=== PATIENT | male | born 1985 ===

== ENCOUNTER 2017-03-01 14:29 | Emergency (ER) | payer MEDICAID ==
[2017-03-01 14:45] VITALS: BP 134/91; PULSE 100; RESP 18; TEMP 98.6; O2SAT 97
[2017-03-01] MEDS ORDERED: TDAP Vaccine 0.5 mL Syr IM ONE (14:52)
--- NOTE | 2017-03-01 14:55 | ED PDOC ---
Lower Extremity Pain/Injury Time Seen by Provider: 03/01/17 14:45 Chief Complaint (Nursing): Lower Extremity Problem/Injury Chief Complaint (Provider): Foot injury History Per: Patient Additional Complaint(s): Pt. states yesterday at home he stepped on a nail while wearing boots (pt. is uncertain as to the material of the sole). Has been having pain to the bottom and top of the foot since. Denies FB sensation, numbness, tingling, fever, hx of DM. Past Medical History Reviewed: Historical Data, Nursing Documentation, Vital Signs Vital Signs: Last Vital Signs Temp 98.6 F 03/01/17 14:42 Pulse 100 H 03/01/17 14:42 Resp 18 03/01/17 14:42 BP 134/91 H 03/01/17 14:42 Pulse Ox 97 03/01/17 14:42 - Family History Family History: States: No Known Family Hx - Immunization History Hx Tetanus Toxoid Vaccination: Yes - Home Medications Home Medications: Ambulatory Orders Medication Instructions Recorded Ciprofloxacin [Cipro] 500 mg PO BID #14 tab 03/01/17 Naproxen [Naprosyn] 500 mg PO BID PRN #30 tab 03/01/17 - Allergies Allergies/Adverse Reactions: Allergies Allergy/AdvReac Type Severity Reaction Status Date / Time No Known Allergies Allergy Verified 10/19/15 11:24 Review of Systems ROS Statement: Except As Marked, All Systems Reviewed And Found Negative Musculoskeletal: Positive for: Foot Pain Physical Exam - Physical Exam Appears: Positive for: Well, Non-toxic, No Acute Distress Skin: Positive for: Normal Color, Warm. Negative for: Rash Pulses-Dorsalis Pedis (L): 2+ Extremity: Positive for: Normal ROM, Other (L foot: plantar surface with healed small puncture wound between 3rd and 4th MTP without surrounding erythema; no break in skin integrity of dorsal surface of foot ) - ECG O2 Sat by Pulse Oximetry: 97 - Radiology X-Ray: Interpreted by Me (Foot x-ray) X-Ray Interpretation: No Acute Disease - Progress ED Course And Treament: Foot x-ray ordered. Tetanus prophylaxis administered. Crutches and crutch walking instructions provided. Disposition - Clinical Impression Clinical Impression: Puncture wound of foot - Patient ED Disposition Is Patient to be Admitted: No - Disposition Referrals: Podiatry Clinic [Outside] Disposition: Routine/Home Disposition Time: 15:15 Condition: STABLE Additional Instructions: Follow up with podiatry clinic in 2 days for further evaluation. Prescriptions: Ciprofloxacin [Cipro] 500 mg PO BID #14 tab Naproxen [Naprosyn] 500 mg PO BID PRN #30 tab PRN Reason: Pain Instructions: Puncture Wound (ED), Crutch Instructions (ED) Print Language: FAROESE
--- NOTE | 2017-03-01 15:08 | RAD ---
PROCEDURE: Left Foot Radiographs. HISTORY: Trauma COMPARISON: None. FINDINGS: BONES: Bone alignment and mineralization are normal. There is no acute fracture or bone destruction. JOINTS: Normal. SOFT TISSUES: Normal. OTHER FINDINGS: None. IMPRESSION: No acute fracture or dislocation.
== END 2017-03-01 16:10 | disposition home or self-care (01) ==
LOC: H.ER 14:29
DX: S91.332A Puncture wound without foreign body, left foot, initial encounter (principal); W45.0XXA Nail entering through skin, initial encounter; Y92.89 Other specified places as the place of occurrence of the external cause

== ENCOUNTER 2017-03-27 14:47 | Emergency (ER) | payer MEDICAID ==
[2017-03-27 14:59] VITALS: BP 118/76; PULSE 96; RESP 20; TEMP 97; O2SAT 97
--- NOTE | 2017-03-27 15:52 | ED PDOC ---
Lower Extremity Pain/Injury Time Seen by Provider: 03/27/17 15:01 Chief Complaint (Nursing): Lower Extremity Problem/Injury Chief Complaint (Provider): Lower extremity problem/injury History Per: Patient History/Exam Limitations: no limitations Onset/Duration Of Symptoms: Days (x4 weeks) Current Symptoms Are (Timing): Still Present Additional History Per: Family Additional Complaint(s): Ari Lora is a 31 year old male with no past medical history who presents to the ED with a chief complaint of left foot pain. Patient reports to stepping on a nail 4 weeks ago and has expressed that he has ankle pain, and his middle toe feels numb and the pain travels up to his lower leg. Denies any associated symptoms but the pain is worse when walking. Past Medical History Reviewed: Historical Data, Nursing Documentation, Vital Signs Vital Signs: Last Vital Signs Temp 97 F L 03/27/17 14:55 Pulse 96 H 03/27/17 14:55 Resp 20 03/27/17 14:55 BP 118/76 03/27/17 14:55 Pulse Ox 97 03/27/17 14:55 - Medical History PMH: No Chronic Diseases - Surgical History Surgical History: No Surg Hx - Family History Family History: States: No Known Family Hx - Living Arrangements Living Arrangements: With Family - Immunization History Hx Tetanus Toxoid Vaccination: Yes - Home Medications Home Medications: Ambulatory Orders Medication Instructions Recorded Ciprofloxacin [Cipro] 500 mg PO BID #14 tab 03/01/17 Naproxen [Naprosyn] 500 mg PO BID PRN #30 tab 03/01/17 Ibuprofen [Motrin Tab] 800 mg PO Q6H PRN #20 tab 03/27/17 - Allergies Allergies/Adverse Reactions: Allergies Allergy/AdvReac Type Severity Reaction Status Date / Time No Known Allergies Allergy Verified 03/27/17 14:55 Review of Systems ROS Statement: Except As Marked, All Systems Reviewed And Found Negative Musculoskeletal: Positive for: Foot Pain (Throbbing ankle, Numb middle toe) Physical Exam - Reviewed Nursing Documentation Reviewed: Yes Vital Signs Reviewed: Yes - Physical Exam Appears: Positive for: Well, Non-toxic, No Acute Distress Head Exam: Positive for: ATRAUMATIC, NORMAL INSPECTION, NORMOCEPHALIC Skin: Positive for: Normal Color, Warm, Dry Eye Exam: Positive for: Normal appearance ENT: Positive for: Normal ENT Inspection Neck: Positive for: Normal Cardiovascular/Chest: Negative for: Murmur, Tachycardia Respiratory: Negative for: Accessory Muscle Use, Wheezing, Respiratory Distress Pulses-Post. Tibialis (L): 2+ Pulses-Post. Tibialis (R): 2+ Back: Positive for: Normal Inspection Rectal: Positive for: Deferred Extremity: Positive for: Normal ROM, Other (Sensation of the toes intact, tenderness of the distal 3rd metatarsal ) Neurologic/Psych: Positive for: Alert, Oriented - ECG O2 Sat by Pulse Oximetry: 97 (RA) Pulse Ox Interpretation: Normal Medical Decision Making Medical Decision Making: Time: 1501: Impression: Trauma to the foot Plan: * Foot AP LAT LT No FB on x-ray Podiatry called at 1615 Podiatry consult completed. Scribe Attestation: Documented by Jodi Mejia acting as a scribe for Mouna Pizarro PA-C. Provider Attestation: All medical record entries made by the Scribe were at my direction and personally dictated by me. I have reviewed the chart and agree that the record accurately reflects my personal performance of the history, physical exam, medical decision making, and the department course for this patient. I have also personally directed, reviewed, and agree with the discharge instructions and disposition. Disposition - Clinical Impression Clinical Impression: Foot pain - Patient ED Disposition Is Patient to be Admitted: No Counseled Patient/Family Regarding: Diagnosis, Need For Followup, Rx Given - Disposition Referrals: Podiatry Clinic [Outside] Disposition: Routine/Home Disposition Time: 18:19 Condition: GOOD Prescriptions: Ibuprofen [Motrin Tab] 800 mg PO Q6H PRN #20 tab PRN Reason: Pain Instructions: Paresthesia (ED)
--- NOTE | 2017-03-27 17:19 | RAD ---
PROCEDURE: Left Foot Radiographs. HISTORY: pain, stepped on nail a few weeks ago COMPARISON: 03/01/2017. FINDINGS: BONES: Normal. No fracture. JOINTS: Normal. SOFT TISSUES: No visualized/radiopaque foreign body OTHER FINDINGS: None. IMPRESSION: No significant or acute findings to account for/ related to the clinical presentation.
--- NOTE | 2017-03-27 17:59 | CP.PCM.CON ---
History of Present Illness - History of Present Illness History of Present Illness: PODIATRY CONSULT NOTE 31 year old male presents to [facility] ED with concerning left foot 3rd digi pain and numbness. Pt reports he was last seen 1 month ago in ED after he tepped on a nail in the same area, Tetanus protocol was followed and he received NSAIDs. Pt complains that since that time he has and numbness and sharp pain in the digit in an alternating fashion while walking or standing for long periods of time. Pain at tis peak is a 5/10 and he reports it radiates proximally along posterior leg, terminating behind his knee. Pt denies any other acute recent trauma. Pt has completed NSAID USE with minor control, and has noted no swelling or erythema to the concerning area. Pt denies recent f/c/cp/sob/n/v. Pt accompanied by his who was present. PMH: denies remarkable medical history. PSH: Left inguinal hernia repair, head laceration repair. All: NKDA Family Hx: Unremarkable Social Hx: Unemployed, homed, . Admits to history of tobacco use 15 years ago (1 pack a day smoker for 3 years). History of alcohol abuse. Denies illicit drug use. Meds: None Past Patient History - Past Social History Smoking Status: Never Smoked - PSYCHIATRIC Hx Substance Use: No - SURGICAL HISTORY Hx Surgeries: No - ANESTHESIA Hx Anesthesia: No Meds Home Medications: Home Medication List Medication Instructions Recorded Confirmed Type Ibuprofen [Motrin Tab] 800 mg PO Q6H PRN #20 tab 03/27/17 Rx Allergies/Adverse Reactions: Allergies Allergy/AdvReac Type Severity Reaction Status Date / Time No Known Allergies Allergy Verified 03/27/17 14:55 Physical Exam - Constitutional Appears: Well, Non-toxic, No Acute Distress - Extremities Exam Additional comments: Left foot focused. VASC: DP and PT pulses fully palpable graded 3/4. No edema noted, no erythema noted. Temperature comparable to contra-lateral limb. DERM: No open wounds, macerations, or hyper-pigmentations. Resolved plantar 3rd metatarsal puncture site noted, epidermal skin not fully reorganized, no noted fibroid tissue at site. NEURO: Protective and epicritic sensation is grossly intact at this time. MUSCK: Tenderness to palpation along dorsal and plantar course of 3rd MTPJ and metatarsal head and neck. Tenderness to compression along distal posterior muscle compartment. Pedal muscle strength in all 4 major pedal muscle groups is graded 5/5. - Neurological Exam Neurological exam: Alert, Oriented x3 - Psychiatric Exam Psychiatric exam: Normal Affect, Normal Mood Results - Vital Signs Recent Vital Signs: Last Vital Signs Temp 97 F L 03/27/17 14:55 Pulse 96 H 03/27/17 14:55 Resp 20 03/27/17 14:55 BP 118/76 03/27/17 14:55 Pulse Ox 97 03/27/17 17:56 Assessment & Plan - Assessment and Plan (Free Text) Assessment: 31 year old male with 3rd digit parasthesia s/p puncture injury suffered 1 month prior. Plan: Pt evaluated and treated. Chart and vitals reviewed. Discussed with attending, Dr. Mayer. - Radiographs reviewed, unremarkable for acute cause of symptoms. - Discussed with pt etiology of neuropraxia, deep fibroid scarring as potential causes of symptoms. All pt questions were addressed to his satisfaction. - Pt to remain weight-bearing as tolerated to heel on left foot with use of post -op she while ambulating. - NSAIDs per ED physician. PT to follow-up in podiatry clinic within 2 weeks for follow-up and potential advanced imaging (ie MRI) - Date & Time Date: 03/27/17 Time: 05:40
== END 2017-03-27 18:30 | disposition home or self-care (01) ==
LOC: H.ER 14:47
DX: M79.672 Pain in left foot (principal)